=== PATIENT | male | born 1965 | race Caucasian/White ===

== ENCOUNTER 2021-08-02 21:12 | Emergency (ER) | payer SELFPAY ==
[2021-08-02 21:18] VITALS: BP 162/82; PULSE 117; RESP 33; TEMP 36.9; O2SAT 87; BMI 59.3
--- NOTE | 2021-08-02 21:34 | XRR_ITS ---
PROCEDURE INFORMATION: Exam: XR Right Tibia and Fibula Exam date and time: 08/02/2021 9:34 PM Age: 56 years old Clinical indication: Injury or trauma; Fall; Blunt trauma; Lower leg; Right; Patient HX: Fell off a 4 joe TECHNIQUE: Imaging protocol: XR Right tibia and fibula. Views: 2 views. COMPARISON: No relevant prior studies available. FINDINGS: Bones/joints: Bones are intact and normal alignment. Moderate degenerative changes of the right knee joint. Large calcaneus spur. Soft tissues: Normal. XR/XR tibia fibula RT 2V [id number] IMPRESSION: 1. No fracture identified.
--- NOTE | 2021-08-02 21:34 | XRR_ITS ---
PROCEDURE INFORMATION: Exam: XR Chest Exam date and time: 08/02/2021 9:34 PM Age: 56 years old Clinical indication: Chest wall pain; Patient HX: C/O cp TECHNIQUE: Imaging protocol: XR of the chest. Views: 1 view. COMPARISON: No relevant prior studies available. FINDINGS: Lungs: Unremarkable. No consolidation. Pleural spaces: Unremarkable. No pleural effusion. No pneumothorax. Heart/Mediastinum: Unremarkable. No cardiomegaly. Bones/joints: Unremarkable. XR/XR chest 1V portable [id number] IMPRESSION: No acute findings.
--- NOTE | 2021-08-02 21:35 | ECG_ITS ---
[facility] Test Date: 2021-08-02 Pat Name: Elie Gill Department: Room: Gender: Male [employer]: : 1965 Requested By: Tino Fay Order Number: [id number] Kristine MD: Gonzalo Otoole M.D. Measurements Intervals [place] Rate: 102 P: 54 [place]: 153 QRS: 62 QRSD: 88 T: 66 QT: 342 QTc: 447 Interpretive Statements SINUS TACHYCARDIA LOW QRS VOLTAGE IN PRECORDIAL LEADS [QRS DEFLECTION < 1.0 mV IN CHEST LEADS] No previous ECG available for comparison Electronically Signed On 08-03-2021 22:20:24 CDT by Gonzalo Otoole M.D. [id number]
[2021-08-02 21:44] LABS: Basophils # 0.1 10^3/uL (0.0-0.1); Basophils % 0.8 %; Eosinophils # 0.2 10^3/uL (0.0-0.8); Eosinophils % 1.8 %; Hematocrit 46.1 % (42.0-52.0); Hemoglobin 14.5 g/dL (11.7-16.6); Lymphocytes # 2.8 10^3/uL (0.8-4.8); Lymphocytes % 25.1 %; Mean Corpuscular HGB Conc 31.5 g/dL (30.0-36.0); Mean Platelet Volume 11.6 fL (7.4-10.4); Monocytes # 1.2 10^3/uL (0.2-0.9); Monocytes % 10.8 %; Neutrophils # 6.81 10^3/uL (1.8-7.7); Neutrophils % 61.1 %; Nucleated Red Blood Cells % 0 %; Platelet Count 180 10^3/cmm (130-400); Red Blood Count 4.39 10^6/uL (4.1-5.3); Red Cell Distribution Width 13.6 % (12.1-15.1); White Blood Count 11.1 10^3/uL (4.0-10.0)
[2021-08-02 21:50] LABS: INR 1.01 (0.8-1.2); Partial Thromboplastin Time 31.6 SECONDS (23.9-36.7)
[2021-08-02 21:53] LABS: D Dimer 0.42 ug/mIFEU (0-0.59)
[2021-08-02 22:02] LABS: Troponin(5th) Baseline 13 ng/L (0-15)
[2021-08-02 22:12] LABS: Alanine Aminotransferase 18 U/L (0-41); Albumin Level 3.9 g/dL (3.5-5.2); Alkaline Phosphatase 87 IU/L (40-130); Aspartate Amino Transferase 18 U/L (0-40); Blood Urea Nitrogen 18 mg/dL (6-20); Calcium 8.5 mg/dL (8.5-10.5); Carbon Dioxide 23 mmol/L (22-29); Chloride 102 mmol/L (98-107); Globulin 3.1 g/dL (1.3-4.6); Glomerular Filtration Rate 52.1 mL/min (90-130); Glucose 110 mg/dL (65-115); NT Pro B Type Natriuretic Pept 110 pg/mL (0-125); Osmolality Calculated 287 mOsm/kg (285-295); Sodium 137 mmol/L (136-145); Total Bilirubin 0.2 mg/dL (0.15-1.2)
[2021-08-02 22:16] LABS: Creatine Phosphokinase 394 U/L (39-308)
--- NOTE | 2021-08-02 22:37 | ED_ITS ---
HPI - SOB/Dyspnea General: Chief Complaint: Shortness of Breath/Dyspnea Stated Complaint: cp Time Seen by Provider: 08/02/21 21:17 History of Present Illness: HPI Narrative: 56-year-old male gentleman who evidently fell this afternoon, striking his face on his lower chest upper abdomen on the ground. He presents with sudden onset central chest pain radiating to his bilateral flanks accompanied by shortness of breath, and diaphoresis. He has a chronic cough but notes no increase in cough. No fevers. No sputum production MD elicited complaint: shortness of breath Onset (ago): minute(s) Context: trauma/injury Severity: moderate Exacerbating factors: nothing Relieving factors: oxygen Associated symptoms: Reports chest congestion, chest pain, diaphoresis, extremity pain (right), nausea and sense of impending doom; Deny fever(s), hemoptysis or vomiting Treatment prior to arrival: none Review of Systems Const: Reports: diaphoresis; Denies: fever(s) Card: Reports: chest pain Resp: Reports: chest congestion; Denies: hemoptysis GI: Reports: nausea; Denies: vomiting Musc: Reports: extremity pain (right) Physical Exam Const: GENERAL APPEARANCE: cooperative, in distress, anxious and diaphoretic NUTRITIONAL APPEARANCE: obese HENMT: COMMON NORMALS: normocephalic HEAD & SCALP: normocephalic Eye: COMMON NORMALS: Equal, round and reactive pupils present and EOMs intact bilaterally PUPIL: Yes Equal, round and reactive pupils present Chest: COMMONS NORMALS: normal inspection of the chest Resp: EFFORT & INSPECTION: Yes tachypneic and Yes uses accessory muscles AUSCULTATION: wheezes throughout Cardio: COMMON NORMALS: regular rhythm RATE: tachycardic RHYTHM: regular rhythm GI: COMMON NORMALS: Normal to inspection, nondistended, normoactive bowel sounds present and Soft to palpation PALPATION: Yes Soft to palpation Course Vital Signs: Vital signs: Vital Signs Temperature 98.4 F 08/02/21 21:18 Pulse Rate 117 H 08/02/21 21:18 Respiratory Rate 33 H 08/02/21 21:18 Blood Pressure 162/82 08/02/21 21:18 Pulse Oximetry 87 L 08/02/21 21:18 MDM - SOB/Dyspnea MDM Narrative: Medical decision making narrative: EKG shows a sinus rhythm with normal axis, rate of [address] changes similar on repeat. White blood cell count is 11.1. Creatinine is 1.4. Troponin is 13 at baseline and did not change at 2 hours. Chest x-ray is negative. X-ray of the right tibia and fibula is negative. Ultrasound reveals no DVT of the right lower extremity. He is D-dimer is negative. His oxygen is been turned off for 2 hours or so. His oxygen saturation is 95% to 97% on room air. He is asymptomatic currently. In the differential diagnosis would be esophageal spasm, anxiety attack although less likely to cause transient hypoxia, posttraumatic airway spasm, or possible reaction to food with bronchospasm, as he was eating when this happened. Symptoms are resolved at this point. He knows to return for return of symptoms Lab Data: Labs: Lab Results 08/02/21 08/02/21 08/02/21 21:25 21:25 21:25 WBC 11.1 10^3/uL H 10 ^3/uL (4.0-10.0) RBC 4.39 10^6/uL 10^6 /uL (4.1-5.3) Hgb 14.5 g/dL g/dL (11.7-16.6) Hct 46.1 % % (42.0-52.0) MCV 105.0 fl H fl (80-94) MCH 33.0 pg pg (28.0-34.0) MCHC 31.5 g/dL g/dL (30.0-36.0) RDW 13.6 % % (12.1-15.1) Plt Count 180 10^3/cmm 10^3 /cmm (130-400) MPV 11.6 fL H fL (7.4-10.4) Neut % (Auto) 61.1 % % Lymph % (Auto) 25.1 % % [place] % (Auto) 10.8 % % Eos % (Auto) 1.8 % % Baso % (Auto) 0.8 % % Neut # (Auto) 6.81 10^3/uL 10^3 /uL (1.8-7.7) Lymph # (Auto) 2.8 10^3/uL 10^3/ uL (0.8-4.8) [place] # (Auto) 1.2 10^3/uL H 10^ 3/uL (0.2-0.9) Eos # (Auto) 0.2 10^3/uL 10^3/ uL (0.0-0.8) Baso # (Auto) 0.1 10^3/uL 10^3/ uL (0.0-0.1) Nucleated RBC % (a uto) 0 % % Nucleated RBCs # 0.0 /100WBC /100W BC PT 13.60 SECONDS SEC ONDS (12.1-14.9) INR 1.01 (0.8-1.2) APTT 31.6 SECONDS SECO NDS (23.9-36.7) D-Dimer 0.42 ug/mIFEU ug/ mIFEU (0-0.59) Specimen Type Sample Site ABG pH ABG pCO2 ABG pO2 ABG HCO3 ABG Base Excess [place] Test Hematocrit O2 Delivery Device FiO2 Industrial Education Instructor ID Sodium 137 mmol/L mmol/L (136-145) Potassium 4.0 mmol/L mmol/L (3.5-5.1) Chloride 102 mmol/L mmol/L (98-107) Carbon Dioxide 23 mmol/L mmol/L (22-29) Anion Gap 16.0 (5-19) BUN 18 mg/dL mg/dL (6-20) Creatinine 1.4 mg/dL H mg/dL (0.7-1.2) GFR Calculation 52.1 mL/min L mL/ min (90-130) Glucose 110 mg/dL mg/dL (65-115) Calculated Osmolal ity 287 mOsm/kg mOsm/ kg (285-295) Calcium 8.5 mg/dL mg/dL (8.5-10.5) Total Bilirubin 0.2 mg/dL mg/dL (0.15-1.2) AST 18 U/L U/L (0-40) ALT 18 U/L U/L (0-41) Alkaline Phosphata se 87 IU/L IU/L (40-130) Creatine Kinase 394 U/L H* U/L (39-308) Troponin T Baselin e Troponin T [address] [place] Troponin T NT-Pro-B Natriuret Pep 110 pg/mL pg/mL (0-125) Total Protein 7.0 g/dL g/dL (6.6-8.7) Albumin 3.9 g/dL g/dL (3.5-5.2) Globulin 3.1 g/dL g/dL (1.3-4.6) 08/02/21 08/02/21 08/02/21 21:25 22:50 23:32 WBC RBC Hgb Hct MCV MCH MCHC RDW Plt Count MPV Neut % (Auto) Lymph % (Auto) [place] % (Auto) Eos % (Auto) Baso % (Auto) Neut # (Auto) Lymph # (Auto) [place] # (Auto) Eos # (Auto) Baso # (Auto) Nucleated RBC % (a uto) Nucleated RBCs # PT INR APTT D-Dimer Specimen Type Arterial Sample Site Radial, right ABG pH 7.40 (7.35-7.45) ABG pCO2 42.9 mmHg mmHg (35-45) ABG pO2 78.2 mmHg L mmHg (80.0-100.0) ABG HCO3 26.4 mmol/L H mmo l/L (22-26) ABG Base Excess 1.3 mmol/L mmol/L (-2.0-2.0) [place] Test Pos Hematocrit 42.6 % % (42-52) O2 Delivery Device None FiO2 21.0 % % Industrial Education Instructor ID [place] Sodium Potassium Chloride Carbon Dioxide Anion Gap BUN Creatinine GFR Calculation Glucose Calculated Osmolal ity Calcium Total Bilirubin AST ALT Alkaline Phosphata se Creatine Kinase Troponin T Baselin e 13 ng/L ng/L (0-15) Troponin T [address] [place] 13.47 ng/L ng/L (0-15) Delta Troponin T 0.47 ABS# ABS# (0-10) NT-Pro-B Natriuret Pep Total Protein Albumin Globulin Discharge Plan Discharge Patient Disposition: Home Clinical Impression: Chest pain Qualifiers: Chest pain type: unspecified Qualified Code(s): R07.9 - Chest pain, unspecified Condition: Stable Discharge Orders: Discharge ED (Routine); Ordered 08/03/21 Ordered By: Tino Conrad Discharge Diet: Advance as tolerated Discharge Activity: Increase activity as tolerated Patient Instructions: Chest Pain (ED) Activity Restrictions/Additional Instructions: Return to the emergency department for return of chest pain, shortness of breath, development of fever, cough, sputum production, vomiting liquids or medications, any other concerning symptoms. Follow-up with your doctor in the next week. Coding Level of Care Code ED Machine Cutter for Chg Fwd Exam Detailed
--- NOTE | 2021-08-02 22:59 | USCV_ITS ---
Bridget Elie Age: 56 Gender: M : 1965 Exam Date: 08/02/2021 23:39 Ordering Phys: Tino Conrad DO Technologist: [place] [facility] [place]ication: RT LEG PAIN HISTORY: Lower extremity pain. RT PROCEDURES: Venous duplex imaging was performed in only the right lower extremity. The following venous structures were evaluated: common femoral vein, profunda vein, proximal portion of the greater saphenous vein, superficial femoral vein, and the popliteal vein. In addition, the posterior tibial and peroneal trunk were evaluated. On the right side, the common femoral, superficial femoral, profunda femoral, popliteal, posterior tibial, greater saphenous veins and the peroneal trunk were identified and interrogated in the standard fashion. FINDINGS: Normal 2-D Doppler and augmentation and compressibility throughout the lower extremity venous structures. Additional imaging through the proximal calf veins also reveals no thrombus. Limited evaluation of the greater saphenous vein is patent with no thrombus. CONCLUSIONS No DVT right lower extremity. Dr. Jaclyn Sawyer DO (Electronically Signed) Final Date: 03 August 2021 07:53 S
[2021-08-02 23:04] LABS: ABG PCO2 42.9 mmHg (35-45); Arterial Blood Gas Hematocrit 42.6 % (42-52); Base Excess ABG 1.3 mmol/L (-2.0-2.0); Blood Gas Allen Test Pos; Blood Gas Operator Identificat JB; Blood Gas Sample Site Radial, right; Blood Gas Sample Type Arterial; HCO3 ABG 26.4 mmol/L (22-26); PO2 ABG 78.2 mmHg (80.0-100.0)
--- NOTE | 2021-08-02 23:35 | ECG_ITS ---
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 Measurements Intervals [place] Rate: 76 P: 50 [place]: 164 QRS: 45 QRSD: 94 T: 63 QT: 395 QTc: 445 Interpretive Statements SINUS RHYTHM LOW QRS VOLTAGE IN PRECORDIAL LEADS [QRS DEFLECTION < 1.0 mV IN CHEST LEADS] Compared to ECG 08/02/2021 21:33:57 Sinus tachycardia no longer present Electronically Signed On 08-03-2021 22:23:16 CDT by Gonzalo Otoole M.D. [email or web address]
[2021-08-03 00:08] LABS: Troponin 5 2HR 13.47 ng/L (0-15); Troponin 5 2HR Delta 0.47 ABS# (0-10)
[2021-08-03 01:15] VITALS: BP 158/90; PULSE 85; O2SAT 96
== END 2021-08-03 01:15 | disposition home or self-care (01) ==
PROVIDERS: Emergency Provider Emergency Medicine
DX: R07.9 Chest pain, unspecified (principal)
CPT/HCPCS: 36600; 71045; 73590; 80053; 82550; 82803; 83880; 84484; 85025; 85378; 85610; 85730; 93005; 93971; 99283